=== PATIENT | male | born 1970 | race Caucasian/White ===

== ENCOUNTER 2025-07-11 15:25 | Emergency (ER) | payer BC, SELFPAY ==
[2025-07-11 15:29] VITALS: BP 152/82
[2025-07-11 16:04] LABS: Urine Character Clear (Clear)
[2025-07-11 16:36] VITALS: BMI 28.6
[2025-07-11] MEDS: TORADOL 15 MG IV (16:40)
[2025-07-11] MEDS: NSS 1000 IV (16:41)
--- NOTE | 2025-07-11 16:43 | ED.GENMED ---
History of Present Illness
General
Chief Complaint: Flank Pain
Source: patient
Exam Limitations: none
Time Seen by Provider: 07/11/25 16:14
Nursing documentation reviewed up to this point in time: agreed with
History of Present Illness
History of Present Illness:
Patient is a 55-year-old male with history of Graves' disease, hyperlipidemia who presents to the emergency department with right sided abdominal pain x 4 days. He states symptoms initially began on Saturday and were intermittent however today he
noticed acute worsening. He describes a somewhat sharp pain in his right mid to lower abdomen radiating around his right flank. He denies any episodes of vomiting however has had some nausea during waves of intense pain. No fever, anorexia,
dysuria or hematuria. No diarrhea/constipation. No chest pain or shortness of breath.
He states symptoms seem worse when lying on his right side and after standing. When he is laying flat on his abdomen he states he is asymptomatic. He denies any exacerbation of symptoms with twisting motion of his abdomen and has no known inciting
injury or trauma. No recent heavy lifting.
Patient has a past history of an appendectomy. No past history of kidney stones.
Review of Systems
Review of Systems
Allergies reviewed?: Yes
All Other Systems: ROS reviewed and negative except as documented in HPI and ROS
Phy Exam
Physical Exam
Physical Exam:
Vitals: Mildly hypertensive, otherwise vital signs stable. Afebrile
General: Patient is in mild distress, nontoxic appearing.
Skin: Warm and dry, no rashes or lesions
Head: Normocephalic, atraumatic
Eyes: Sclera nonicteric.
Throat: Protecting airway
Neck: Normal ROM, no cervical spine tenderness, no meningismus
Cardiac: Regular rate and rhythm, no murmurs.
Pulm: Normal respiratory effort, no wheezes, rales, rhonchi heard on exam
Abdomen: Abdomen soft. Mild reproducible tenderness in right lower quadrant. No rebound tenderness or guarding. No tenderness in right upper quadrant. Negative Bernardo sign. No CVA tenderness.
Extremities: No evidence of cyanosis or edema
Neuro: AAOx3. Grossly intact.
Psychiatric: Normal affect.
Course
Orders/Labs/Results
Orders:
Orders
07/11/25 15:40
Urinalysis Reflex To Culture Urgent
Date Specimen was Collected: 07/11/25
Time Specimen was Collected: 15:35
07/11/25 16:27
0.9% Sodium Chloride 1000 ml [Nss] 1,000 ml IV BOLUS
Ketorolac [Toradol] 15 mg IV NOW STA
07/11/25 16:29
CT Abd/pelvis W Iv Cont Urgent
Comment: hx appendectomy
Reason For Exam: RLQ pain radiating to flank
07/11/25 16:39
Complete Blood Count/With Diff Urgent
Comprehensive Metabolic Panel Urgent
Lipase Urgent
Abnormal Lab Results
07/11/25
16:39
RBC 4.34 L 10^6/uL
(4.70-6.10)
MCH 31.6 H pg
(27.0-31.0)
07/11/25 16:39
07/11/25 16:39
Vital Signs
Initial and Last Documented VS:
Initial Vital Signs
Temp Pulse Resp BP
98.8 F 78 16 152/82
07/11/25 15:29 07/11/25 15:29 07/11/25 15:29 07/11/25 15:29
Last Documented Vital Signs
Temp Pulse Resp BP Pulse Ox
98.8 F 76 18 122/82 98
07/11/25 15:29 07/11/25 16:49 07/11/25 16:49 07/11/25 16:49 07/11/25 16:49
MDM/Problems Addressed
Differential Diagnosis Includes:
Not limited to: Renal colic, pyelonephritis, UTI, diverticulitis, biliary colic or cholelithiasis, hernia, muscular strain, etc.
MDM/Problems Addressed:
55-year-old male with 4 days of right sided abdominal discomfort with acute worsening today. Mild associated nausea however no reported fever, vomiting, anorexia, dysuria/hematuria, or changes in bowel habits. No history of similar symptoms.
Vitals and physical exam as above. Patient well-appearing, in only mild distress. Abdomen soft with mild reproducible tenderness in right lower abdomen/right mid abdomen. No rebound tenderness or guarding. No tenderness negative Bernardo sign. No
CVA tenderness. Cardio/pulmonary assessment unremarkable.
He does have a past history of an appendectomy. Differential includes renal colic, UTI/pyelonephritis, possible atypically presenting diverticulitis. May also be MSK etiology. Less likely biliary etiology given location of pain.
ED plan: Labs, UA. Given somewhat vague presentation�will obtain CT scan of abdomen/pelvis with IV contrast. Will treat symptoms and reassess.
Update: labs and UA without acute findings. CT shows no acute intraabdominal pathology. Clinical picture not consistent with cystitis.
Work up in ED unremarkable. His pain is currently well controlled. No evidence of intraabdominal infectious process. Possibly musculoskeletal in nature. Will discharge patient with supportive care instruction and PCP follow-up. Strict return
precautions discussed. Patient comfortable with plan.
Chronic conditions affecting care:
N/A
Acute Exacerbation and/or Progression of Chronic Illness:
N/A
*Radiology
Radiology exam reviewed: radiology read reviewed
*Pulse Oximetry
SaO2: 98
Oxygen Mode of Delivery: Room air
Patient hypoxic: no
*EKG
Interpreted by ED Provider?: NA
*Utility Spray Operator Interpretation
Rate: Utility Spray Operator- N/A
*Critical Care Note
Total Time (30-74mins, 75-104mins- exclusive of procedures): Not Applicable
ED Attending Note
-
Portions of this chart may have been created with voice recognition software.� Occasional wrong word or��sound alike� substitutions may have occurred due to the inherent limitations of voice recognition software.
Discharge Plan
Departure
Patient Disposition: Home (Routine Discharge)
Date of Disposition: 07/11/25
Time of Disposition: 19:47
Patient with high blood pressure during this ER visit?: Yes
Condition: Good
Discharge Problem:
Right flank pain
Instructions: Flank Pain (DC), BLOOD PRESSURE
Prescriptions:
No Action
liothyronine 5 mcg Tablet
5 mcg PO DAILY
levothyroxine [Synthroid] 125 mcg Tablet
125 mcg PO DAILY
escitalopram oxalate 10 mg Tablet
10 mg PO DAILY
rosuvastatin 20 mg Tablet
20 mg PO DAILY
Referrals:
UNKNOWN - PT DOES,NOT KNOW [Family Provider]
Activity Restrictions/Additional Instructions:
RETURN TO THE EMERGENCY DEPARTMENT WITH ANY FEVERS, PERSISTENT/WORSENING ABDOMINAL PAIN, INTRACTABLE NAUSEA/VOMITING, DIFFICULTIES WITH URINATION, CHEST PAIN OR SHORTNESS OF BREATH, WORSENING CURRENT SYMPTOMS, OR ANY OTHER SYMPTOMS CONCERNING TO YOU
- As discussed�your lab work showed no acute abnormalities. Your urinalysis did not reveal any evidence of infection. Your CT scan was without any acute findings.
- We are unsure the exact etiology of your abdominal/flank pain today�this may be musculoskeletal in nature. Please treat symptoms supportively at home with NSAIDs, Tylenol, lidocaine patch.
- Please stay well-hydrated.
- Follow-up with your primary care provider later this week for further evaluation/management to ensure that your symptoms are improving
Monitor your symptoms closely and return to the emergency department with any acute worsening/new symptoms or any other concerns
Interventions
Interventions:
*Risk Screen - Suicide Last Done: 07/11/25 15:29
*General Assessment Last Done: 07/11/25 16:36
*Neglect/Abuse Screening Last Done: 07/11/25 15:29
*ED- Fall Risk Assessment Last Done: 07/11/25 16:36
*ED COVID-19 Vaccine History Last Done: 07/11/25 16:36
*Nursing Disposition Last Done: 07/11/25 20:26
DI-Illbei-Sxkqbqwxln Assessment Last Done: 07/11/25 16:36
ED-Male Genitourinary Assessment Last Done: 07/11/25 16:36
Discharge Date and Time
Discharge Date/Time: 07/11/25 20:26
Print Language: [place]
[2025-07-11 16:49] VITALS: BP 122/82
[2025-07-11 16:51] LABS: Hematocrit 39.8 % (39.0-52.0); Hemoglobin 13.7 g/dL (13.0-18.0); Mean Corp Hgb Conc. 34.4 g/dL (33.0-37.0); Mean Corpuscular Volume 91.7 fL (80.0-94.0); Nucleated Red Blood Cells % 0 % (-); Platelet Count 246 10^3/uL (130-400); Red Cell Dist. Width 12.4 % (11.5-14.5)
[2025-07-11 17:17] LABS: ALT (SGPT) 22 U/L (0-50); AST (SGOT) 24 U/L (17-59); Albumin 4.6 g/dl (3.5-5.0); Alkaline Phosphatase 52 U/L (38-126); Blood Urea Nitrogen 10 mg/dl (9-20); Calcium 9.5 mg/dl (8.4-10.2); Carbon Dioxide 30 mmol/L (22-30); Chloride 104 mmol/L (98-107); Estimated Creatinine Clearance 123 ml/min; Glucose 93 mg/dl (70-99); Lipase 112 U/L (23-300); Potassium 4.3 mmol/L (3.5-5.1); Sodium 139 mmol/L (135-145); Total Protein 7.1 g/dl (6.3-8.2); eGFR > 60.00
== END 2025-07-11 20:26 | disposition home or self-care (01) ==
LOC: EMR 15:25
PROVIDERS: Physician Assistant; Student in an Organized Health Care Education/Training Program; EMERGENCY PHYSICIAN Emergency Medicine
DX: R10.9 Unspecified abdominal pain (principal); R11.0 Nausea; E78.5 Hyperlipidemia, unspecified; E05.00 Thyrotoxicosis with diffuse goiter without thyrotoxic crisis or storm
CPT/HCPCS: 96374; 96361; 99284; 74177; 80053; 81003; 83690; 85025; Q9967